=== PATIENT | male | born 1950 | race Caucasian/White ===

== ENCOUNTER → 2023-08-06 | Outpatient (CLI) | payer MEDICARE ==
--- NOTE | 2023-08-13 21:20 | PE ---
EXAMINATION TYPE: PET CT fusion skull to thigh DATE OF EXAM: 08/06/2023 COMPARISON: None Prior PET/CT: None HISTORY: Esophageal cancer TECHNIQUE: Following the intravenous administration of 13.0 mCi of F-18 FDG, whole body images are p erformed from the skull base to the midthigh. Images are reviewed on the computer in the coronal, ax ial, and sagittal planes. Reconstructed rotating images are created on independent workstation and r eviewed on the computer. A localization and attenuation correction CT is performed in conjunction w ith the PET scan. DLP: 875.4 mGycm SCAN: Initial Blood glucose: 112 mg/dL Average Mediastinum SUV: 2.37 Average Liver SUV: 2.5 FINDINGS: NECK: No abnormal uptake THORAX: There is intense uptake within the distal left lateral aspect of the esophagus., Example imag e 118, SUV 11.93. Small amount of radiotracer is along the more distal anterior esophageal wall image 132, SUV 5.62. ABDOMEN: No abnormal uptake PELVIS: No abnormal uptake OSSEOUS STRUCTURES: No abnormal uptake LOCALIZATION CT: Esophagus is dilated with fluid. Cholelithiasis is present COMPARISON: None IMPRESSION: 1. Uptake along the left lateral and distal anterior esophageal wall. No suspicious metastatic diseas e identified.
== END | disposition home or self-care (01) ==
LOC: RADPETMAIN 07:04
PROVIDERS: ATTEND Internal Medicine Hematology & Oncology
DX: C15.5 Malignant neoplasm of lower third of esophagus (principal); M10.9 Gout, unspecified; I10 Essential (primary) hypertension
CPT/HCPCS: 78815; A9552

== ENCOUNTER 2023-09-08 12:28 | Observation (INO) | payer MEDICARE ==
[2023-09-08] MEDS ORDERED: SODIUM CHLORIDE 0.9% 500 ML 500 ML IV STA (12:46)
--- NOTE | 2023-09-08 12:58 | ED ---
General Adult HPI - General Chief complaint: Syncope Stated complaint: Syncope Time Seen by Provider: 09/08/23 12:30 Source: patient, RN/MD, RN notes reviewed, old records reviewed Mode of arrival: wheelchair Limitations: no limitations - History of Present Illness Initial comments: 73-year-old presenting after suspected anaphylactic reaction to chemotherapy. Patient was starting chemotherapy today he was premedicated with Benadryl and Decadron. Patient apparently became agonal and momentarily lost pulse according to the nursing staff who was with him. He did not require CPR. He did not require intubation he did not require epinephrine. he had several episodes of vomiting. He was given additional dose of Solu-Medrol Benadryl and Pepcid. He is tired at the time my evaluation but in no acute distress. No pain complaints. This was his first dose of chemotherapy. - Related Data Home Medications Medication Instructions Recorded Confirmed Acetaminophen [Tylenol Extra 500 mg PO DAILY 09/08/23 09/08/23 Strength] Ascorbic Acid [Vitamin C] 500 mg PO DAILY 09/08/23 09/08/23 Cholecalciferol [Vitamin D3 (25 25 mcg PO DAILY 09/08/23 09/08/23 Mcg = 1000 Iu)] Lisinopril-Hctz 20-25 mg 1 tab PO DAILY 09/08/23 09/08/23 [Zestoretic 20-25] Tamsulosin [Flomax] 0.4 mg PO DAILY 09/08/23 09/08/23 allopurinoL 100 mg PO HS 09/08/23 09/08/23 Allergies Allergy/AdvReac Type Severity Reaction Status Date / Time No Known Allergies Allergy Verified 09/08/23 14:17 Review of Systems ROS Statement: Those systems with pertinent positive or pertinent negative responses have been documented in the HPI. ROS Other: All systems not noted in ROS Statement are negative. Past Medical History Past Medical History: Cancer, GERD/Reflux, Hypertension Additional Past Medical History / Comment(s): ESOPHAGEAL, GOUT History of Any Multi-Drug Resistant Organisms: None Reported Past Surgical History: Hernia Repair Past Psychological History: No Psychological Hx Reported Smoking Status: Former smoker Past Alcohol Use History: Occasional Past Drug Use History: None Reported General Exam Limitations: no limitations General appearance: alert, in no apparent distress Head exam: Present: atraumatic, normocephalic Eye exam: Present: normal appearance, PERRL ENT exam: Present: normal exam Neck exam: Present: normal inspection. Absent: tenderness, meningismus Respiratory exam: Present: normal lung sounds bilaterally. Absent: respiratory distress, wheezes Cardiovascular Exam: Present: regular rate, normal rhythm GI/Abdominal exam: Present: soft. Absent: distended, tenderness, guarding Extremities exam: Present: normal inspection, normal capillary refill Neurological exam: Present: alert, oriented X3, CN II-XII intact. Absent: motor sensory deficit Psychiatric exam: Present: normal affect, normal mood Skin exam: Present: warm, dry, intact. Absent: cyanosis, diaphoretic Course Vital Signs 09/08/23 09/08/23 09/08/23 12:32 12:55 13:05 Temperature 98.1 F Pulse Rate 77 70 74 Respiratory 20 17 17 Rate Blood Pressure 105/70 98/50 109/67 O2 Sat by Pulse 98 97 97 Oximetry 09/08/23 09/08/23 13:55 14:05 Temperature Pulse Rate 61 63 Respiratory 18 18 Rate Blood Pressure 108/50 108/53 O2 Sat by Pulse 98 98 Oximetry Medical Decision Making - Medical Decision Making Was pt. sent in by a medical professional or institution (, PA, GRE TUTOR, urgent care, hospital, or half-way...) When possible be specific @ -Sent from the infusion center with anaphylactic reaction, severe adverse reaction to chemotherapy. Did you speak to anyone other than the patient for history (EMS, parent, family, police, friend...)? What history was obtained from this source @ -No Did you review nursing and triage notes (agree or disagree)? Why? @ -I reviewed and agree with nursing and triage notes Were old charts reviewed (outside hosp., previous admission, EMS record, old EKG, old radiological studies, urgent care reports/EKG's, half-way records)? Report findings @ -No old charts were reviewed Differential Diagnosis (chest pain, altered mental status, abdominal pain women, abdominal pain men, vaginal bleeding, weakness, fever, dyspnea, syncope, headache, dizziness, GI bleed, back pain, seizure, CVA, palpatations, mental health, musculoskeletal)? @Differential Syncope: Anaphylactic shock, allergic reaction valvular disease, hypertrophic cardiomyopathy, pulmonary embolism, tamponade, tachycardia, bradycardia, VA, hypovolemia, hemorrhage, dissection, anemia, intracranial hemorrhage, seizure, hypoglycemia, carbon monoxide poisoning, this is not meant to be an all- inclusive list. EKG interpreted by me (3pts min.). @Sinus rhythm rate of 80, CT interval 164, QRS duration 156, QTc 474, right bundle branch without ST segment elevation, no old for comparison. X-rays interpreted by me (1pt min.). @Chest x-ray negative for acute cardiopulmonary disease. CT interpreted by me (1pt min.). @ -None done U/S interpreted by me (1pt. min.). @ -None done What testing was considered but not performed or refused? (CT, X-rays, U/S, labs)? Why? @ -None What meds were considered but not given or refused? Why? @ -None Did you discuss the management of the patient with other professionals (josue reynolds i.eHernandez Sanders, PA, GRE TUTOR, lab, RT, psych nurse, director social welfare, mold filler plastic dolls, teacher, credit administration officer, case monitor)? Give summary @Dr. Mackay, will admit. Nursing staff from [facility] who had taken care of the patient. Was smoking cessation discussed for >3mins.? @ -No Was critical care preformed (if so, how long)? @ -Yes, 35 minutes Were there social determinants of health that impacted care today? How? (Homelessness, low income, unemployed, alcoholism, drug addiction, transportation, low edu. Level, literacy, decrease access to med. care, custodial, rehab)? @ -No Was there de-escalation of care discussed even if they declined (Discuss DNR or withdrawal of care, Hospice)? DNR status @ -No What co-morbidities impacted this encounter? (DM, HTN, Smoking, COPD, CAD, Cancer, CVA, ARF, Chemo, Hep., AIDS, mental health diagnosis, sleep apnea, morbid obesity)? @ -Esophageal cancer Was patient admitted / discharged? Hospital course, mention meds given and route, prescriptions, significant lab abnormalities, going to OR and other pertinent info. @ -73-year-old male with severe adverse reaction, anaphylactic reaction to chemotherapy. Upon arrival to the emergency department the patient is somewhat somnolent but able to answer questions. He being given a total of 75 mg of Benadryl. He had some tongue swelling residual and multiple episodes of vomiting since suspect anaphylactic reaction. He had been medicated also prior to the emergency room. He is in a sinus rhythm he had relatively normal laboratory testing. Chest x-ray is clear. Given the severity of his symptoms he will be observed on telemetry. Undiagnosed new problem with uncertain prognosis? @ -No Drug Therapy requiring intensive monitoring for toxicity (Heparin, Nitro, Insulin, Cardizem)? @ -No Were any procedures done? @ -No Diagnosis/symptom? @ -Anaphylactic reaction, syncope Acute, or Chronic, or Acute on Chronic? @ -[Acute Uncomplicated (without systemic symptoms) or Complicated (systemic symptoms)? @ -Complicated Side effects of treatment? @ -No Exacerbation, Progression, or Severe Exacerbation? @ -No Poses a threat to life or bodily function? How? (Chest pain, USA, VA, pneumonia, PE, COPD, DKA, ARF, appy, cholecystitis, CVA, Diverticulitis, Homicidal, Suicidal, threat to staff... and all critical care pts) @ -[Yes, allergic reaction, syncope - Lab Data Result diagrams: 09/08/23 12:48 09/08/23 12:48 Lab Results 09/08/23 09/08/23 09/08/23 Range/Units 12:48 12:48 12:48 WBC 13.1 H (3.8-10.6) k/uL RBC 4.88 (4.30-5.90) m/uL Hgb 15.6 (13.0-17.5) gm/dL Hct 46.0 (39.0-53.0) % MCV 94.3 (80.0-100.0) fL MCH 31.9 (25.0-35.0) pg MCHC 33.8 (31.0-37.0) g/dL RDW 14.5 (11.5-15.5) % Plt Count 249 (150-450) k/uL MPV 7.7 Neutrophils % 83 % Lymphocytes % 13 % Monocytes % 2 % Eosinophils % 1 % Basophils % 0 % Neutrophils # 10.9 H (1.3-7.7) k/uL Lymphocytes # 1.8 (1.0-4.8) k/uL Monocytes # 0.3 (0-1.0) k/uL Eosinophils # 0.1 (0-0.7) k/uL Basophils # 0.1 (0-0.2) k/uL PT 12.7 H (10.0-12.5) sec INR 1.2 H (<1.2) Sodium 136 L (137-145) mmol/L Potassium 4.0 (3.5-5.1) mmol/L Chloride 103 (98-107) mmol/L Carbon Dioxide 28 (22-30) mmol/L Anion Gap 5 mmol/L BUN 21 H (9-20) mg/dL Creatinine 0.82 (0.66-1.25) mg/dL Est GFR (CKD-EPI)AfAm >90 (>60 ml/min/1.73 sqM) Est GFR (CKD-EPI)NonAf 87 (>60 ml/min/1.73 sqM) Glucose 147 H (74-99) mg/dL Calcium 8.9 (8.4-10.2) mg/dL Magnesium 1.7 (1.6-2.3) mg/dL Total Bilirubin 1.1 (0.2-1.3) mg/dL AST 17 (17-59) U/L ALT 13 (4-49) U/L Alkaline Phosphatase 77 (38-126) U/L Troponin I (0.000-0.034) ng/mL Total Protein 6.2 L (6.3-8.2) g/dL Albumin 3.5 (3.5-5.0) g/dL 09/08/23 Range/Units 12:48 WBC (3.8-10.6) k/uL RBC (4.30-5.90) m/uL Hgb (13.0-17.5) gm/dL Hct (39.0-53.0) % MCV (80.0-100.0) fL MCH (25.0-35.0) pg MCHC (31.0-37.0) g/dL RDW (11.5-15.5) % Plt Count (150-450) k/uL MPV Neutrophils % % Lymphocytes % % Monocytes % % Eosinophils % % Basophils % % Neutrophils # (1.3-7.7) k/uL Lymphocytes # (1.0-4.8) k/uL Monocytes # (0-1.0) k/uL Eosinophils # (0-0.7) k/uL Basophils # (0-0.2) k/uL PT (10.0-12.5) sec INR (<1.2) Sodium (137-145) mmol/L Potassium (3.5-5.1) mmol/L Chloride (98-107) mmol/L Carbon Dioxide (22-30) mmol/L Anion Gap mmol/L BUN (9-20) mg/dL Creatinine (0.66-1.25) mg/dL Est GFR (CKD-EPI)AfAm (>60 ml/min/1.73 sqM) Est GFR (CKD-EPI)NonAf (>60 ml/min/1.73 sqM) Glucose (74-99) mg/dL Calcium (8.4-10.2) mg/dL Magnesium (1.6-2.3) mg/dL Total Bilirubin (0.2-1.3) mg/dL AST (17-59) U/L ALT (4-49) U/L Alkaline Phosphatase (38-126) U/L Troponin I <0.012 (0.000-0.034) ng/mL Total Protein (6.3-8.2) g/dL Albumin (3.5-5.0) g/dL Critical Care Time Critical Care Time: Yes Total Critical Care Time: 35 Disposition Clinical Impression: Anaphylaxis, Syncope Disposition: ADMITTED IP TO [facility] Condition: Stable Is patient prescribed a controlled substance at d/c from ED?: No Referrals: Annetta Mackay DO [Primary Care Provider] - 1-2 days Time of Disposition: 14:12
[2023-09-08 12:59] LABS: Basophils # (A) 0.1 k/uL (0-0.2); Basophils % (A) 0 %; Eosinophils # (A) 0.1 k/uL (0-0.7); Eosinophils % (A) 1 %; HGB 15.6 gm/dL (13.0-17.5); Lymphocytes # (A) 1.8 k/uL (1.0-4.8); Lymphocytes % (A) 13 %; MCH 31.9 pg (25.0-35.0); MCHC 33.8 g/dL (31.0-37.0); MCV 94.3 fL (80.0-100.0); Mean Platelet Volume 7.7; Monocytes # (A) 0.3 k/uL (0-1.0); Monocytes % (A) 2 %; Neutrophils # (A) 10.9 k/uL (1.3-7.7); Neutrophils % (A) 83 %; Platelet Count 249 k/uL (150-450); RBC 4.88 m/uL (4.30-5.90); RDW 14.5 % (11.5-15.5); WBC 13.1 k/uL (3.8-10.6)
[2023-09-08 13:10] LABS: ALT 13 U/L (4-49); AST 17 U/L (17-59); African American GFR (CKD) >90 (>60 ml/min/1.73 sqM); Albumin 3.5 g/dL (3.5-5.0); Alkaline Phosphatase 77 U/L (38-126); Anion Gap 5 mmol/L; Blood Urea Nitrogen 21 mg/dL (9-20); Calcium 8.9 mg/dL (8.4-10.2); Carbon Dioxide 28 mmol/L (22-30); Chloride 103 mmol/L (98-107); Glucose 147 mg/dL (74-99); Magnesium 1.7 mg/dL (1.6-2.3); Non-African American GFR(CKD) 87 (>60 ml/min/1.73 sqM); Sodium 136 mmol/L (137-145); Total Bilirubin 1.1 mg/dL (0.2-1.3); Total Protein 6.2 g/dL (6.3-8.2)
--- NOTE | 2023-09-08 13:28 | XR ---
EXAMINATION TYPE: XR chest 2V DATE OF EXAM: 09/08/2023 COMPARISON: None INDICATION: Syncope history of cancer TECHNIQUE: Frontal and lateral views of the chest are obtained. FINDINGS: The heart size is normal. The pulmonary vasculature is normal. The lungs are clear. IMPRESSION: 1. No acute pulmonary process.
[2023-09-08 13:32] LABS: INR 1.2 (<1.2); Prothrombin Time 12.7 sec (10.0-12.5)
[2023-09-08] MEDS ORDERED: ACETAMINOPHEN TAB 325 MG TAB PO PRN (14:05)
[2023-09-08] MEDS ORDERED: NALOXONE 0.4 MG/ML 1 ML VIAL IV PRN (14:05)
[2023-09-08] MEDS ORDERED: diphenhydrAMINE 50 MG/ML 1 ML VIAL IVP PRN (14:07)
[2023-09-08] MEDS: SODIUM CHLORIDE 0.9% 1,000 ML IV SCH (14:22)
[2023-09-08] MEDS: methylPREDNISolone SOD SUCCI 125 MG/2 ML VIAL IV SCH ×2 (15:16→23:25)
[2023-09-09 01:45] VITALS: TEMP 97.6
[2023-09-09] MEDS: SODIUM CHLORIDE 0.9% 1,000 ML IV SCH (07:41)
[2023-09-09] MEDS: methylPREDNISolone SOD SUCCI 125 MG/2 ML VIAL IV SCH (07:42)
[2023-09-09] MEDS ORDERED: FAMOTIDINE 20 MG/2 ML VIAL IV SCH (09:00)
[2023-09-09] MEDS ORDERED: MAGNESIUM OXIDE 400 MG TAB PO STA (11:14)
--- NOTE | 2023-09-09 11:17 | P.HPIM ---
History of Present Illness H&P Date: 09/09/23 Chief Complaint: Allergic reaction to chemotherapy History and Physical and Discharge Summary: This is a pleasant 73-year-old gentleman with past medical history significant for esophageal cancer, gastroesophageal reflux disease, hypertension, former nicotine dependence and multiple other medical issues. Yesterday patient developed a anaphylactic reaction with his initiation of chemotherapy, first dose. Reports he was premedicated with Benadryl and Decadron. Reports his face became reddened and hot, sweaty, flushed. ER records reports the nursing staff at that office reported he momentarily became agonal and lost his pulse but did not require CPR. He did not require epinephrine, nor intubation. Transferred to the ER. patient had several episodes of nausea and vomiting. Received IV fluid hydration, Solu-Medrol, Benadryl and Pepcid. This morning he reports he feels significantly better , back to baseline ,asymptomatic. denies chest pain, palpitations or shortness of breath. Denies lightheadedness, dizziness or focal deficits. Denies abdominal pain or cramping. Chest x-ray reported nonacute. Maintaining O2 sats of 98 to 99% on 2 L nasal cannula. EKG reporting sinus rhythm right bundle branch block. Review of Systems ROS Statement: Those systems with pertinent positive or pertinent negative responses have been documented in the HPI. ROS Other: All systems not noted in ROS Statement are negative. Past Medical History Past Medical History: Cancer, GERD/Reflux, Hypertension Additional Past Medical History / Comment(s): ESOPHAGEAL, GOUT History of Any Multi-Drug Resistant Organisms: None Reported Past Surgical History: Hernia Repair Past Psychological History: No Psychological Hx Reported Smoking Status: Former smoker Past Alcohol Use History: Occasional Past Drug Use History: None Reported Medications and Allergies Home Medications Medication Instructions Recorded Confirmed Type Acetaminophen [Tylenol Extra 500 mg PO DAILY 09/08/23 09/08/23 History Strength] Cholecalciferol [Vitamin D3 (25 25 mcg PO DAILY 09/08/23 09/08/23 History Mcg = 1000 Iu)] Lisinopril-Hctz 20-25 mg 1 tab PO DAILY 09/08/23 09/08/23 History [Zestoretic 20-25] Tamsulosin [Flomax] 0.4 mg PO DAILY 09/08/23 09/08/23 History Vitamin B12 250 mcg PO DAILY 09/08/23 09/08/23 History Vitamin C With Zinc 1 tab PO DAILY 09/08/23 09/08/23 History allopurinoL 300 mg PO HS 09/08/23 09/08/23 History predniSONE [Deltasone] 40 mg PO DAILY 3 Days #6 tab 09/09/23 Rx Allergies Allergy/AdvReac Type Severity Reaction Status Date / Time No Known Allergies Allergy Verified 09/08/23 14:17 Physical Exam Vitals: Vital Signs Temp Pulse Resp BP Pulse Ox 09/09/23 10:14 85 18 134/71 97 09/09/23 09:30 85 18 136/89 2 L 09/09/23 08:35 95 09/09/23 07:48 78 18 129/92 09/09/23 06:01 84 15 102/73 94 L 09/09/23 04:20 87 12 102/56 95 09/09/23 03:00 81 24 93 L 09/09/23 01:23 97.6 F 57 L 19 94 L 09/09/23 00:50 65 17 94 L 09/08/23 23:25 69 18 113/73 94 L 09/08/23 21:41 70 16 122/77 94 L 09/08/23 19:38 80 16 118/61 94 L 09/08/23 18:20 97.9 F 72 17 109/45 96 09/08/23 17:04 81 18 136/78 95 09/08/23 16:01 98.4 F 63 16 119/66 96 09/08/23 15:15 97.9 F 64 17 109/60 97 09/08/23 14:05 63 18 108/53 98 09/08/23 13:55 61 18 108/50 98 09/08/23 13:05 74 17 109/67 97 09/08/23 12:55 70 17 98/50 97 09/08/23 12:32 98.1 F 77 20 105/70 98 PHYSICAL EXAM: VITAL SIGNS: [As above] GENERAL: Alert and oriented x 3, well-nourished, sitting up on stretcher, no acute distress HEENT: Normocephalic, atraumatic conjunctivae normal. eyes normal. NECK: Supple, no JVD. CARDIOVASCULAR: S1, S2 regular. No murmur RESPIRATION: Unlabored, equal air entry , CTA.No rhonchi or crackles. No bronchial breathing. ABDOMEN: Soft, nondistended, nontender . No guarding. no masses palpable. No ascites, No hepatosplenomegaly.Bowel sounds heard. LEGS: No edema. no swelling PSYCHIATRY: Alert and oriented X3, mood and affect normal. NERVOUS SYSTEM: Cranial N 2-12 grossly normal. No focal deficits. Strength and sensation grossly intact. Skin: Warm and dry, no rash Results CBC & Chem 7: 09/08/23 12:48 09/08/23 12:48 Labs: Abnormal Lab Results - Last 24 Hours (Table) 09/08/23 09/08/23 09/08/23 Range/Units 12:48 12:48 12:48 WBC 13.1 H (3.8-10.6) k/uL Neutrophils # 10.9 H (1.3-7.7) k/uL PT 12.7 H (10.0-12.5) sec INR 1.2 H (<1.2) Sodium 136 L (137-145) mmol/L BUN 21 H (9-20) mg/dL Glucose 147 H (74-99) mg/dL Total Protein 6.2 L (6.3-8.2) g/dL Assessment and Plan Assessment: Anaphylaxis accompanied by syncope, during his first dose of chemotherapy, in a patient with history of esophageal cancer Gastroesophageal reflux disease Prior nicotine dependence Obesity, BMI 30 Hypertension Discharge Medication List Acetaminophen [Tylenol Extra Strength] 500 mg PO DAILY 09/08/23 [History] Cholecalciferol [Vitamin D3 (25 Mcg = 1000 Iu)] 25 mcg PO DAILY 09/08/23 [History] Lisinopril-Hctz 20-25 mg [Zestoretic 20-25] 1 tab PO DAILY 09/08/23 [History] Tamsulosin [Flomax] 0.4 mg PO DAILY 09/08/23 [History] Vitamin B12 250 mcg PO DAILY 09/08/23 [History] Vitamin C With Zinc 1 tab PO DAILY 09/08/23 [History] allopurinoL 300 mg PO HS 09/08/23 [History] predniSONE [Deltasone] 40 mg PO DAILY 3 Days #6 tab 09/09/23 [Rx] Plan: Continue on current medication regimen, monitoring and symptomatic treatment. Significant clinical improvement. O2 sat on room air after ambulation pending. Patient will be discharged home on a short taper of predn isone x 3 days. Discharged home today in a stable condition with guarded prognosis. The impression and plan of care has been dictated as directed. : I performed a history and examination of this patient, discussed the same with the dictator. I agree with the dictator's note ,documented as a scribe. Any additional findings or plans will be noted.
[2023-09-09 13:23] VITALS: BP 130/60; PULSE 68; RESP 16
== END 2023-09-09 13:12 | disposition home or self-care (01) ==
LOC: EC 12:28 → 3SCARD 14:06
PROVIDERS: ADMIT Family Medicine; ATTEND Family Medicine
DX: R55 Syncope and collapse (principal); T45.1X5A Adverse effect of antineoplastic and immunosuppressive drugs, initial encounter; K21.9 Gastro-esophageal reflux disease without esophagitis; I10 Essential (primary) hypertension; E66.9 Obesity, unspecified; Z68.30 Body mass index [BMI] 30.0-30.9, adult; Z85.01 Personal history of malignant neoplasm of esophagus; Z87.891 Personal history of nicotine dependence; Z79.52 Long term (current) use of systemic steroids; Z79.899 Other long term (current) drug therapy
CPT/HCPCS: 96376 ×2; 96361; 96374; 96375; 99291; 36415; 94760; 93005; 80053; 83735; 84484; 85025; 85610; 71046; G0378 ×2; J2930 ×2; J3490

== ENCOUNTER → 2024-08-15 | Outpatient (CLI) | payer MEDICARE ==
[2024-08-15 11:29] LABS: African American GFR (CKD) >90 (>60 ml/min/1.73 sqM); Blood Urea Nitrogen 13 mg/dL (9-20); Non-African American GFR(CKD) >90 (>60 ml/min/1.73 sqM)
--- NOTE | 2024-08-15 14:47 | CT ---
EXAMINATION TYPE: CT ChestAbdPelvis w con DATE OF EXAM: 08/15/2024 COMPARISON: Head CT July 29, 2023 HISTORY: HX OF ESOPHAGUS CA CT DLP: 1830 mGycm. Automated Exposure Control for Dose Reduction was Utilized. CONTRAST: CT scan of the thorax, abdomen and pelvis is performed with oral and with IV Contrast, patient inject ed with 100ml mL of Isovue 300. FINDINGS: LUNGS: There are new small to tiny right greater than left pleural effusions. There is new mild-to-mo derate right basilar linear scarring and/or atelectasis and mild medial left basilar linear scarring and/or atelectasis. MEDIASTINUM: There are no new greater than 1 cm hilar or mediastinal lymph nodes. No cardiomegaly o r pericardial effusion is seen. There is new total esophagectomy and gastric pull-up procedure. Focal narrowing just above the darshana axial image 23 is noted. LIVER/GB: Internal calcified gallstone in contracted gallbladder is redemonstrated. Subcentimeter low dense lesion hepatic dome axial image 48 is too small to further characterize. PANCREAS: Mild to moderate generalized atrophy. SPLEEN: No significant abnormality is seen. ADRENALS: No significant abnormality is seen. KIDNEYS: There is 1.3 cm simple appearing thin-walled cyst posteriorly in the right kidney delayed ax ial image 34. BOWEL: Oral contrast only reaches jejunal loops in the left abdomen. No abnormal small or large bowel dilatation is present. GENITAL ORGANS: Enlarged prostate consistent with BPH with central calcifications. LYMPH NODES: No greater than 1cm abdominal or pelvic lymph nodes are appreciated. OSSEOUS STRUCTURES: Moderate degenerative changes of both hips again seen. OTHER: Mild to moderate calcified plaque of the abdominal aorta extends into branch vessels. IMPRESSION: Intervertebral total esophagectomy and gastric pull-up. There is no suspicious new mass o r adenopathy to suggest active neoplastic recurrence. [facility], , 08/15/2024 2:45 PM
== END | disposition home or self-care (01) ==
LOC: RADCTMAIN 10:42
PROVIDERS: ATTEND Internal Medicine Hematology & Oncology
DX: C15.5 Malignant neoplasm of lower third of esophagus (principal); M10.9 Gout, unspecified; I10 Essential (primary) hypertension; Z71.3 Dietary counseling and surveillance; Z90.49 Acquired absence of other specified parts of digestive tract
CPT/HCPCS: 82565; 84520; 71260; 74177; 36415; Q9967